=== PATIENT | male | born 1990 | race Caucasian/White ===

== ENCOUNTER 2017-08-18 16:20 | Emergency (ER) | payer BC ==
[2017-08-18] MEDS ORDERED: SODIUM CHLORIDE 0.9% 1,000 ML IV STA (17:18)
[2017-08-18] MEDS ORDERED: ONDANSETRON 4 MG/2 ML VIAL IVP STA (17:18)
--- NOTE | 2017-08-18 17:24 | ED ---
General Adult HPI - General Chief complaint: Nausea/Vomiting/Diarrhea Stated complaint: Abd Pain/Nausea Time Seen by Provider: 08/18/17 16:51 Source: patient, family, RN notes reviewed Mode of arrival: ambulatory Limitations: no limitations - History of Present Illness Initial comments: Chief complaint and history of present illness a 19-year-old male who reports that she's been having on again off again abdominal discomfort and left upper quadrant pain for 10 days. Several days feeling nauseated without vomiting no diarrhea. Sweats at night. In general feeling weak. Not improving. - Related Data Home Medications Medication Instructions Recorded Confirmed Insulin Glulisine [Apidra] 20 unit SQ AC-TID 10/29/13 08/18/17 Aspirin [Adult Low Dose Aspirin EC] 81 mg PO HS 08/18/17 08/18/17 Allergies Allergy/AdvReac Type Severity Reaction Status Date / Time No Known Allergies Allergy Verified 08/18/17 16:33 Review of Systems ROS Statement: Those systems with pertinent positive or pertinent negative responses have been documented in the HPI. Review of systems. No headache or visual acuity changes no chest pain or shortness of breath but he has had some coughing. [place] pain the left upper quadrant reproducible with palpation of that area. Occasional episodes of nausea no vomiting no diarrhea. Generally decreased appetite. Sweats at night. All systems reviewed. Past medical problems insulin-dependent diabetes mellitus type 1. Hypertension, tendinitis right shoulder. No surgeries. Family history cancers include small cell lung cancer, colon cancer and kidney cancer. The patient denies any ALLERGIES. Nonsmoker. Occasional use of alcohol. Patient denies likelihood of food poisoning. No also sick in the house. ROS Other: All systems not noted in ROS Statement are negative. Past Medical History Past Medical History: Diabetes Mellitus, Hypertension Additional Past Medical History / Comment(s): right shoulder injury History of Any Multi-Drug Resistant Organisms: None Reported Past Surgical History: No Surgical Hx Reported Past Psychological History: Anxiety, Depression Smoking Status: Never smoker Past Alcohol Use History: None Reported, Occasional Past Drug Use History: None Reported General Exam - General Exam Comments Initial Comments: General: The patient is awake and alert, complaining of left upper quadrant pain. Increases with palpation. No signs temperature 100.0 pulse 110 respiratory rate 18 pulse ox 90% room air blood pressure 132/87 Eye: Pupils are equal, round and reactive to light, extra-ocular movements are intact ; there is normal conjunctiva bilaterally. No signs of icterus. Ears, nose, mouth and throat: There are moist mucous membranes and no oral lesions. Neck: The neck is supple, there is no tenderness. Cardiovascular: Tachycardic heart rate, 110.. No murmur, rub or gallop is appreciated. Respiratory: Lungs are clear to auscultation, respirations are non-labored, breath sounds are equal. No wheezes, stridor, rales, or rhonchi. Gastrointestinal: Voluntary guarding with palpation of the left upper quadrant. No organomegaly. Normal active bowel sounds. Patient does have a glucose monitoring device on his left mid abdomen. Back: There is no tenderness to palpation in the midline. There is no obvious deformity. No rashes noted. Musculoskeletal: Normal ROM, no tenderness, There is no pedal edema. Neurological: No neuro deficits Skin: Skin is warm and dry and no rashes, denies being bitten by any ticks Limitations: no limitations Course Vital Signs 08/18/17 16:21 Temperature 100.0 F H Pulse Rate 110 H Respiratory 18 Rate Blood Pressure 132/87 O2 Sat by Pulse 98 Oximetry Medical Decision Making - Medical Decision Making Patient was evaluated by the psychiatric nurse. The plans with the patient be admitted to 3 . for further evaluation for depression suicidal thoughts. - Lab Data Result diagrams: 08/18/17 17:00 Lab Results 08/18/17 08/18/17 Range/Units 17:00 17:00 WBC 7.8 (3.8-10.6) k/uL RBC 5.20 (4.30-5.90) m/uL Hgb 16.6 (13.0-17.5) gm/dL Hct 49.3 (39.0-53.0) % MCV 94.8 (80.0-100.0) fL MCH 31.9 (25.0-35.0) pg MCHC 33.6 (31.0-37.0) g/dL RDW 12.0 (11.5-15.5) % Plt Count 309 (150-450) k/uL Neutrophils % 72 % Lymphocytes % 20 % Monocytes % 5 % Eosinophils % 2 % Basophils % 1 % Neutrophils # 5.7 (1.3-7.7) k/uL Lymphocytes # 1.5 (1.0-4.8) k/uL Monocytes # 0.4 (0-1.0) k/uL Eosinophils # 0.1 (0-0.7) k/uL Basophils # 0.0 (0-0.2) k/uL Influenza Type A RNA Not Detected (Not Detectd) Influenza Type B (PCR) Not Detected (Not Detectd) Disposition Clinical Impression: Major depression, Suicidal ideation Disposition: TRANSFER TO PSYCH HOSP/UNIT Condition: Serious Referrals: Radha Levine MD [Primary Care Provider] - 1-2 days
[2017-08-18 18:05] LABS: Basophils % (A) 1 %; Eosinophils # (A) 0.1 k/uL (0-0.7); Eosinophils % (A) 2 %; HCT 49.3 % (39.0-53.0); HGB 16.6 gm/dL (13.0-17.5); Lymphocytes # (A) 1.5 k/uL (1.0-4.8); Lymphocytes % (A) 20 %; MCH 31.9 pg (25.0-35.0); MCHC 33.6 g/dL (31.0-37.0); MCV 94.8 fL (80.0-100.0); Mean Platelet Volume 6.9; Monocytes # (A) 0.4 k/uL (0-1.0); Monocytes % (A) 5 %; Neutrophils # (A) 5.7 k/uL (1.3-7.7); Neutrophils % (A) 72 %; Platelet Count 309 k/uL (150-450); WBC 7.8 k/uL (3.8-10.6)
[2017-08-18 18:25] LABS: ALT 32 U/L (21-72); AST 23 U/L (17-59); Albumin 4.9 g/dL (3.5-5.0); Alkaline Phosphatase 91 U/L (38-126); Amylase 79 U/L (30-110); Anion Gap 12 mmol/L; Blood Urea Nitrogen 13 mg/dL (9-20); Calcium 10.2 mg/dL (8.4-10.2); Carbon Dioxide 25 mmol/L (22-30); Chloride 103 mmol/L (98-107); Glucose 138 mg/dL (74-99); Lipase 55 U/L (23-300); Sodium 140 mmol/L (137-145); Total Bilirubin 0.8 mg/dL (0.2-1.3); Total Protein 7.5 g/dL (6.3-8.2)
--- NOTE | 2017-08-18 18:26 | XR ---
Chest x-ray with left RIBS HISTORY: Left upper quadrant pain and nausea Frontal view of the chest and 4 views of the left ribs correlated to prior chest x-ray dated 03/03/2013 There is no displaced rib fracture. Bone mineralization is maintained. No pneumothorax, airspace dise ase, or pleural effusion. Cardiomediastinal silhouette, pulmonary vascularity and edward within normal limits. IMPRESSION: No acute abnormality.
--- NOTE | 2017-08-18 18:27 | XR ---
2 view abdomen HISTORY: Left upper quadrant pain 2 views of the abdomen on 3 images. Correlation to prior abdomen 08/17/2014 Lung bases are clear. There is no bowel obstruction or pneumoperitoneum evident. No pathologic calcif ication. Bone mineralization is maintained. IMPRESSION: No significant abnormality
[2017-08-18 18:54] VITALS: RESP 16
[2017-08-18 19:10] LABS: Appearance,Urine Clear (Clear); Bilirubin,Urine Negative (Negative); Blood,Urine Negative (Negative); Color,Urine Yellow; Glucose,Urine (UA) Negative (Negative); Ketones,Urine Negative (Negative); Leukocyte Esterase,Urine Negative (Negative); Nitrite,Urine Negative (Negative); Protein,Urine Negative (Negative); Specific Gravity,Urine 1.012 (1.001-1.035); Urobilinogen,Urine <2.0 mg/dL (<2.0)
[2017-08-18 20:20] VITALS: BP 129/77; PULSE 77; TEMP 98.3
== END 2017-08-18 20:20 | disposition home or self-care (01) ==
LOC: EC 16:20
DX: B34.9 Viral infection, unspecified (principal); E11.9 Type 2 diabetes mellitus without complications; Z79.4 Long term (current) use of insulin; Z79.82 Long term (current) use of aspirin
CPT/HCPCS: 36415; 80053; 82150; 83690; 85025; 86308; 81003; 87502; 71101; 74019; 99284; 96374; 96361 ×2; J2405

== ENCOUNTER → 2017-12-02 | Outpatient (CLI) | payer BC ==
[2017-12-02 17:20] LABS: ALT 35 U/L (21-72); AST 21 U/L (17-59); Albumin 5.3 g/dL (3.5-5.0); Alkaline Phosphatase 90 U/L (38-126); Anion Gap 19 mmol/L; Blood Urea Nitrogen 16 mg/dL (9-20); Calcium 10.3 mg/dL (8.4-10.2); Carbon Dioxide 24 mmol/L (22-30); Chloride 99 mmol/L (98-107); Cholesterol 224 mg/dL (<200); Glucose 306 mg/dL (74-99); HDL Cholesterol 104 mg/dL (40-60); LDL Cholesterol,Calculated 98 mg/dL (0-99); Potassium 4.7 mmol/L (3.5-5.1); Sodium 142 mmol/L (137-145); Total Bilirubin 1.3 mg/dL (0.2-1.3); Total Protein 7.9 g/dL (6.3-8.2); Triglycerides 109 mg/dL (<150)
== END ==
LOC: LABWHC1 16:13
PROVIDERS: ATTEND Internal Medicine Endocrinology, Diabetes & Metabolism
DX: E10.65 Type 1 diabetes mellitus with hyperglycemia (principal)
CPT/HCPCS: 36415; 80053; 80061; 82043; 82570; 84443; 84681

== ENCOUNTER 2018-04-28 14:34 | Emergency (ER) | payer BC ==
--- NOTE | 2018-04-28 14:48 | ED ---
General Adult HPI - General Chief complaint: Nausea/Vomiting/Diarrhea Stated complaint: Weak/nausea/vomiting Time Seen by Provider: 04/28/18 14:48 Source: patient Mode of arrival: ambulatory Limitations: no limitations - History of Present Illness Initial comments: 27-year-old male with past medical history of type 1 diabetes and HTN presenting today for chief complaint of mild abdominal pain since Thursday with 2 episodes of vomiting yesterday. Patient admits to chills and mild nausea (on and off), denies any diarrhea, fever, pattern with food, headache, chest pain, shortness of breath, dyspnea. Patient states that he is on a regulated insulin pump that has automatic feet that to regulate sugars. Patient has had a cough 1 day, denies sputum production. He states the symptoms feel similar to when he had a stomach bug last year around this time. Denies current abdominal pain. Patient denies any shortness of breath, chest pain, back pain,numbness or tingling, dysuria or hematuria, constipation or diarrhea, headaches or visual changes, or any other complaints. Upon arrival pt VS stable pt appears well, no acute distress. - Related Data Home Medications Medication Instructions Recorded Confirmed Aspirin [Adult Low Dose Aspirin EC] 81 mg PO DAILY 04/28/18 04/28/18 Insulin Aspart (For Pump) [NovoLOG See Protocol SQ DIRECTED 04/28/18 04/28/18 (For Pump)] Multivitamins, Thera [Multivitamin 1 tab PO DAILY 04/28/18 04/28/18 (formulary)] Previous Rx's Medication Instructions Recorded Ondansetron HCl [Zofran] 4 mg PO DAILY PRN 5 Days #5 tablet 04/28/18 Allergies Allergy/AdvReac Type Severity Reaction Status Date / Time No Known Allergies Allergy Verified 04/28/18 15:23 Review of Systems ROS Statement: Those systems with pertinent positive or pertinent negative responses have been documented in the HPI. ROS Other: All systems not noted in ROS Statement are negative. Constitutional: Denies: fever ENT: Denies: ear pain, throat pain Respiratory: Reports: cough. Denies: dyspnea, wheezes, hemoptysis, stridor Cardiovascular: Denies: chest pain, palpitations Gastrointestinal: Reports: abdominal pain, nausea, vomiting. Denies: diarrhea, constipation, hematemesis, melena, hematochezia, other Genitourinary: Denies: urgency, dysuria, frequency, hematuria Musculoskeletal: Denies: back pain Skin: Denies: rash, lesions Neurological: Denies: headache, weakness, numbness, paresthesias, confusion, abnormal gait Past Medical History Past Medical History: Diabetes Mellitus, Hypertension Additional Past Medical History / Comment(s): right shoulder injury History of Any Multi-Drug Resistant Organisms: None Reported Past Surgical History: No Surgical Hx Reported Past Psychological History: Anxiety, Depression Smoking Status: Never smoker Past Alcohol Use History: Occasional Past Drug Use History: None Reported General Exam - General Exam Comments Initial Comments: General: The patient is awake and alert, in no distress, and does not appear acutely ill. Eye: Pupils are equal, round and reactive to light, extra-ocular movements are intact. No nystagmus. There is normal conjunctiva bilaterally. No signs of icterus. Ears, nose, mouth and throat: There are moist mucous membranes and no oral lesions. Oropharynx is mildly erythematous, there is no tonsillar enlargement or exudates. Postnasal drip. Uvula midline. Tympanic membranes within normal limits bilaterally. Neck: The neck is supple, there is no tenderness or JVD. No anterior cervical lymphadenopathy. Cardiovascular: There is a regular rate and rhythm. No murmur, rub or gallop is appreciated. Respiratory: Lungs are clear to auscultation, respirations are non-labored, breath sounds are equal. No wheezes, stridor, rales, or rhonchi. Gastrointestinal: No noted diaphoresis, jaundice, pallor, protecting postures or squirming. Symmetrical pigmentation of abdomen without signs of inflammation, scars, or striae. Insulin pump in place. Umbilicus mildline, inverted without swelling. No dilated veins. Abdomen contour scaphoid, no noted abdominal distention. No visible masses. No peristalsis, aortic pulsations, or ventral hernia. Bowel sounds audible in all 4 quadrants, unremarkable. No friction rubs or venous hums. No epigastic, hepatic or abdominal bruits. No tenderness to light or deep palpation. Liver edge, not palpable. Spleen edge, right and left kidney not palpable. Superior bladder margin non-tender. Special Testing: Negative [place], [place], [place], Ruth, cutaneous hyperesthesia. Negative Heel Jar test. No CVA tenderness. Digital rectal exam deferred. Negative matos turners or cullens sign Musculoskeletal: Normal ROM, no tenderness. Strength 5/5. Sensation intact. Pulses equal bilaterally 2+. Neurological: A&O x 3. CN II-XII intact, There are no obvious motor or sensory deficits. Coordination appears grossly intact. Speech is normal. Skin: Skin is warm and dry and no rashes or lesions are noted. Psychiatric: Cooperative, appropriate mood & affect, normal judgment. Limitations: no limitations Course Vital Signs 04/28/18 04/28/18 14:38 17:00 Temperature 98.6 F 97.0 F L Pulse Rate 101 H 85 Respiratory 20 16 Rate Blood Pressure 149/91 124/62 O2 Sat by Pulse 99 98 Oximetry Medical Decision Making - Medical Decision Making Laboratory findings as noted above. UA unremarkable. Chest x-ray within normal limits. KUB revealed no acute process or findings concerning for extraction. Abdominal exam benign, no findings concerning for acute abdomen at this time. At this time we feel patient nausea and vomiting is due to viral syndrome. Reevaluation of abdomen, continued to reveal no alarming findings for acute abdomen, pt denies abdominal pain. Patient be discharged with Zofran for nausea PRN. Case discussed in detail with Dr. Savage who agrees with impression and plan. Pt states he is ready for discharge. Pt discharged in stable condition. Upon discharge patient did admit to sore throat, he did not admit to this upon initial review of systems-question was asked directly. Rapid strep testing was obtained, patient stated that he would like discharge and we would call with the results. Rapid strep testing (-). - Lab Data Result diagrams: 04/28/18 15:10 04/28/18 15:10 Lab Results 04/28/18 04/28/18 04/28/18 Range/Units 15:10 15:10 15:10 WBC 7.0 (3.8-10.6) k/uL RBC 4.97 (4.30-5.90) m/uL Hgb 15.9 (13.0-17.5) gm/dL Hct 48.2 (39.0-53.0) % MCV 97.0 (80.0-100.0) fL MCH 31.9 (25.0-35.0) pg MCHC 32.9 (31.0-37.0) g/dL RDW 12.3 (11.5-15.5) % Plt Count 289 (150-450) k/uL Neutrophils % 59 % Lymphocytes % 30 % Monocytes % 5 % Eosinophils % 3 % Basophils % 0 % Neutrophils # 4.2 (1.3-7.7) k/uL Lymphocytes # 2.1 (1.0-4.8) k/uL Monocytes # 0.4 (0-1.0) k/uL Eosinophils # 0.2 (0-0.7) k/uL Basophils # 0.0 (0-0.2) k/uL Sodium 137 (137-145) mmol/L Potassium 4.6 (3.5-5.1) mmol/L Chloride 102 (98-107) mmol/L Carbon Dioxide 26 (22-30) mmol/L Anion Gap 9 mmol/L BUN 14 (9-20) mg/dL Creatinine 0.76 (0.66-1.25) mg/dL Est GFR (CKD-EPI)AfAm >90 (>60 ml/min/1.73 sqM) Est GFR (CKD-EPI)NonAf >90 (>60 ml/min/1.73 sqM) Glucose 193 H (74-99) mg/dL Calcium 9.8 (8.4-10.2) mg/dL Total Bilirubin 0.6 (0.2-1.3) mg/dL AST 23 (17-59) U/L ALT 19 L (21-72) U/L Alkaline Phosphatase 57 (38-126) U/L Total Protein 7.0 (6.3-8.2) g/dL Albumin 4.4 (3.5-5.0) g/dL Amylase 82 (30-110) U/L Lipase 63 (23-300) U/L Urine Color Light Yellow Urine Appearance Clear (Clear) Urine pH 5.5 (5.0-8.0) Ur Specific [place] 1.013 (1.001-1.035) Urine Protein Negative (Negative) Urine Glucose (UA) 1+ H (Negative) Urine Ketones Negative (Negative) Urine Blood Negative (Negative) Urine Nitrite Negative (Negative) Urine Bilirubin Negative (Negative) Urine Urobilinogen <2.0 (<2.0) mg/dL Ur Leukocyte Esterase Negative (Negative) Group A Strep Rapid (Negative) 10/31/18 Range/Units 16:40 WBC (3.8-10.6) k/uL RBC (4.30-5.90) m/uL Hgb (13.0-17.5) gm/dL Hct (39.0-53.0) % MCV (80.0-100.0) fL MCH (25.0-35.0) pg MCHC (31.0-37.0) g/dL RDW (11.5-15.5) % Plt Count (150-450) k/uL Neutrophils % % Lymphocytes % % Monocytes % % Eosinophils % % Basophils % % Neutrophils # (1.3-7.7) k/uL Lymphocytes # (1.0-4.8) k/uL Monocytes # (0-1.0) k/uL Eosinophils # (0-0.7) k/uL Basophils # (0-0.2) k/uL Sodium (137-145) mmol/L Potassium (3.5-5.1) mmol/L Chloride (98-107) mmol/L Carbon Dioxide (22-30) mmol/L Anion Gap mmol/L BUN (9-20) mg/dL Creatinine (0.66-1.25) mg/dL Est GFR (CKD-EPI)AfAm (>60 ml/min/1.73 sqM) Est GFR (CKD-EPI)NonAf (>60 ml/min/1.73 sqM) Glucose (74-99) mg/dL Calcium (8.4-10.2) mg/dL Total Bilirubin (0.2-1.3) mg/dL AST (17-59) U/L ALT (21-72) U/L Alkaline Phosphatase (38-126) U/L Total Protein (6.3-8.2) g/dL Albumin (3.5-5.0) g/dL Amylase (30-110) U/L Lipase (23-300) U/L Urine Color Urine Appearance (Clear) Urine pH (5.0-8.0) Ur Specific [place] (1.001-1.035) Urine Protein (Negative) Urine Glucose (UA) (Negative) Urine Ketones (Negative) Urine Blood (Negative) Urine Nitrite (Negative) Urine Bilirubin (Negative) Urine Urobilinogen (<2.0) mg/dL Ur Leukocyte Esterase (Negative) Group A Strep Rapid Negative (Negative) Disposition Clinical Impression: Viral syndrome, Nausea & vomiting Disposition: HOME SELF-CARE Condition: Good Instructions: Acute Nausea and Vomiting (ED) Additional Instructions: Please use medication as discussed. Please follow-up with family doctor in the next 2 days. Please return to emergency room if the symptoms increase or worsen or for any other concerns. Prescriptions: Ondansetron HCl [Zofran] 4 mg PO DAILY PRN 5 Days #5 tablet PRN Reason: Nausea Is patient prescribed a controlled substance at d/c from ED?: No Referrals: Radha Levine MD [Primary Care Provider] - 1-2 days Time of Disposition: 16:39
[2018-04-28] MEDS ORDERED: SODIUM CHLORIDE 0.9% 1,000 ML IV STA (14:49)
[2018-04-28 15:53] LABS: Basophils % (A) 0 %; Eosinophils # (A) 0.2 k/uL (0-0.7); Eosinophils % (A) 3 %; HCT 48.2 % (39.0-53.0); HGB 15.9 gm/dL (13.0-17.5); Lymphocytes # (A) 2.1 k/uL (1.0-4.8); Lymphocytes % (A) 30 %; MCH 31.9 pg (25.0-35.0); MCHC 32.9 g/dL (31.0-37.0); Mean Platelet Volume 7.2; Monocytes # (A) 0.4 k/uL (0-1.0); Monocytes % (A) 5 %; Neutrophils # (A) 4.2 k/uL (1.3-7.7); Neutrophils % (A) 59 %; Platelet Count 289 k/uL (150-450); RBC 4.97 m/uL (4.30-5.90); RDW 12.3 % (11.5-15.5)
[2018-04-28 15:54] LABS: Appearance,Urine Clear (Clear); Bilirubin,Urine Negative (Negative); Blood,Urine Negative (Negative); Color,Urine Light Yellow; Glucose,Urine (UA) 1+ (Negative); Ketones,Urine Negative (Negative); Leukocyte Esterase,Urine Negative (Negative); Nitrite,Urine Negative (Negative); PH, Urine 5.5 (5.0-8.0); Protein,Urine Negative (Negative); Specific Gravity,Urine 1.013 (1.001-1.035); Urobilinogen,Urine <2.0 mg/dL (<2.0)
--- NOTE | 2018-04-28 15:54 | XR ---
EXAMINATION TYPE: XR chest 2V DATE OF EXAM: 04/28/2018 COMPARISON: NONE HISTORY: Chest pain TECHNIQUE: Frontal and lateral views of the chest are obtained. FINDINGS: There is no focal air space opacity. No evidence for pneumothorax. No pleural effusion. The cardiac silhouette size is within normal limits. The osseous structures are grossly intact. IMPRESSION: 1. No acute cardiopulmonary process.
--- NOTE | 2018-04-28 15:56 | XR ---
EXAMINATION TYPE: XR KUB DATE OF EXAM: 04/28/2018 COMPARISON: NONE HISTORY: Pain TECHNIQUE: Single supine KUB image of the abdomen is obtained FINDINGS: Small bowel demonstrates no evidence for dilatation or air fluid levels. Gas and fecal material is seen in non-distended colon. No convincing evidence for pneumoperitoneum. No unusual calcifications. The lung bases are clear. The osseous structures are intact. IMPRESSION: 1. Overall nonobstructive bowel gas pattern.
[2018-04-28 16:01] LABS: ALT 19 U/L (21-72); AST 23 U/L (17-59); Albumin 4.4 g/dL (3.5-5.0); Alkaline Phosphatase 57 U/L (38-126); Amylase 82 U/L (30-110); Anion Gap 9 mmol/L; Blood Urea Nitrogen 14 mg/dL (9-20); Calcium 9.8 mg/dL (8.4-10.2); Carbon Dioxide 26 mmol/L (22-30); Chloride 102 mmol/L (98-107); Glucose 193 mg/dL (74-99); Lipase 63 U/L (23-300); Potassium 4.6 mmol/L (3.5-5.1); Sodium 137 mmol/L (137-145); Total Bilirubin 0.6 mg/dL (0.2-1.3)
[2018-04-28 17:00] VITALS: BP 124/62; PULSE 85; RESP 16; TEMP 97
== END 2018-04-28 17:00 | disposition home or self-care (01) ==
LOC: EC 14:34
DX: B34.9 Viral infection, unspecified (principal); E10.9 Type 1 diabetes mellitus without complications; Z79.4 Long term (current) use of insulin; Z79.82 Long term (current) use of aspirin
CPT/HCPCS: 36415; 71046; 74018; 80053; 81003; 82150; 83690; 85025; 87081; 87430; 96360; 99284